=== PATIENT | male | born 1960 | race Caucasian/White ===

== ENCOUNTER → 2018-04-10 | Outpatient (CLI) | payer BC | LOC: FIMAGING 14:48 | PROVIDERS: ATTEND Orthopaedic Surgery | DX: M16.11 Unilateral primary osteoarthritis, right hip (principal) ==

== ENCOUNTER 2018-05-04 06:01 | Inpatient (IN) | payer BC ==
[~2018-05-04 06:01] MED LIST: ROPIVACAINE 0.2% 80 MG, EPINEPHrine 0.2 MG, KETOROLAC TROMETHAMINE 30 MG, morphINE 10 M... IU ONE; TRANEXAMIC ACID 1,000 MG in NS 100 ML IV ONE; VANCOMYCIN 1.25 GM in NS 250 ML IV ONE; VANCOMYCIN PHARMACY TO DOSE MISC ONE
--- NOTE | 2018-05-04 06:13 | PDIAF ---
- Diagnosis Diagnosis: right hip djd Code Status: Full Code - Medication Management Discharge Medications: Medications to Continue on Transfer Amphet Asp and D/Amphet [Adderall 10 MG (*)] 2.5 mg PO DAILY PRN 03/20/18 [Last Taken Unknown] Discharge Medications: Refer to the Discharge Home Medication list for PRN reason. - Orders Services needed: Home Care, Physical Therapy Home Care Face to Face: I certify that this patient was under my care and that I had the required oltm-wp-crws encounter meeting the encounter requirements on the discharge day. My findings support the fact that the patient is homebound as defined in Home Care Face to Face Continued: CMS Chapter 7 Medicare Benefits Manual 30.1.1 , The condition of the patient is such that there exists a normal inability to leave home and consequently, leaving home would require a considerable and taxing effort. Diet Recommendation: no restrictions on diet Diet Texture: Regular Texture Diet Additional Instructions: TOTAL JOINT ARTHROPLASTY DISCHARGE INSTRUCTIONS 1. Your surgeon follows the [facility] protocol for reducing your risk of DVT (blood clots) following surgery. Medication will be ordered to prevent blood clots. A sudden increase in calf pain and/or swelling could indicate a blood clot in your leg. If this occurs, please call your surgeon or his/her early childhood assistant. An ultrasound of the leg may be necessary to diagnose a blood clot. If you have conditions that make you a higher risk for blood clots, your surgeon may use more aggressive ways to prevent them. Notify your surgeon if you think you are a high risk for blood clots. 2. Wear your white surgical stockings (KENYATTA hose) for 2 weeks. This decreases your swelling and may help prevent blood clots. It is ok to remove KENYATTA hose at night time to give your legs a break. 3. Swelling and bruising in the surgical leg is common. If you feel that it is excessive, please notify your surgeon. 4. Elevate your surgical leg with the ankle above the hip several times every day. Please keep the leg straight when you elevate by putting pillows under your foot. Do not put pillows under your knee. This will make being able to fully straighten more difficult. This is uncomfortable, but try to do it as much as possible. 5. For total knee replacements use compressive wrap on your knee for 3-5 days after surgery, then you can discontinue it. 6. Use a walker or crutches for 1-2 weeks. Progress your weight-bearing as tolerated. You may start to use a cane when you feel stable and safe. 7. You will receive physical therapy instructions in the hospital. Continue those exercises at home. There are additional exercises in the total joint booklet you were given before surgery. Outpatient physical therapy will begin 7- 10 days after surgery. Please schedule this in advance. 8. Use ice on your knee at least 3-5 times every day for 30 minutes. This helps reduce pain and swelling. Also use it at night before falling asleep. 9. Leave your surgical dressing in place for 2 weeks. Your dressing is water resistant, but not waterproof. Cover it with Saran Wrap or Qdlqq-w-Fjfe before showering. You may shower as soon as you feel safe entering a shower. If you notice bleeding from your incision 2 or 3 days after surgery, please notify your surgeon. 10. Due to narcotics, decreased activity and altered diet, most patients experience constipation after surgery. Use vnfl-bvo-ztewaee stool softeners while you are on narcotics. 11. You may drive a car when you are comfortable bearing weight, have good muscular control of your leg and are off narcotics. This usually occurs 2-4 weeks after surgery, depending on which leg was operated on. 12. If there are questions not addressed here, please refer the [facility] book given for more information. If you still have questions, please contact your surgeon s office. 13. If you have a life-threatening emergency, please call 911 and go to the emergency room immediately. For non-life threatening emergencies, please call your physicians office for advice before going to the emergency room. - Follow Up Care Current Providers and Referrals: Xu Mendoza MD [Medical Doctor] - Kaitlin Bower MD [Primary Care Provider] -
--- NOTE | 2018-05-04 06:13 | PDHPUP ---
History & Physical Update H&P update statement: This history and physical update is based on an assessment of the patient which was completed after admission or registration (within 24 hours), but prior to the surgery/procedure. H&P update: no change in patient's condition since H&P completed
[2018-05-04] MEDS ORDERED: FAMOTIDINE 20 MG TAB PO ONE (06:17)
[2018-05-04] MEDS ORDERED: ACETAMINOPHEN 325 MG TAB PO ONE (06:17)
[2018-05-04] MEDS ORDERED: LIDOCAINE 1% 2 ML INJ ID PRN (06:18)
[2018-05-04] MEDS ORDERED: LR 1,000 ML IV ONE (06:18)
[2018-05-04] MEDS ORDERED: ceFAZolin 1 GM/5 ML SYR ONE (06:53)
[2018-05-04] MEDS ORDERED: fentaNYL 100 MCG/2 ML INJ ONE (06:54)
[2018-05-04] MEDS ORDERED: PROPOFOL/EMULSION 500 MG/50 ML BOTTLE IV ONE (06:56)
[2018-05-04] MEDS ORDERED: MIDAZOLAM 2 MG/2 ML VIAL IVP ONE (06:56)
[2018-05-04] MEDS ORDERED: MIDAZOLAM 2 MG/2 ML VIAL ONE (07:17)
[2018-05-04] MEDS ORDERED: NALOXONE HCL 0.4 MG/ML INJ IVP PRN (08:01)
[2018-05-04] MEDS ORDERED: PROMETHAZINE HCL 25 MG/ML INJ IVP PRN ×2 (08:01→08:55)
[2018-05-04] MEDS ORDERED: fentaNYL 100 MCG/2 ML INJ IVP PRN (08:01)
[2018-05-04] MEDS ORDERED: METOCLOPRAMIDE 10 MG/2 ML VIAL IVP PRN ×2 (08:01→08:55)
[2018-05-04] MEDS ORDERED: ONDANSETRON 4 MG/2 ML VIAL IVP PRN ×2 (08:01→08:55)
[2018-05-04] MEDS ORDERED: ALBUTEROL 3 ML DEYVIAL IH PRN (08:01)
[2018-05-04] MEDS ORDERED: DIAZEPAM 5 MG/ML 1 ML SYR IVP PRN (08:01)
[2018-05-04] MEDS ORDERED: oxyCODONE IR 5 MG TAB PO PRN ×2 (08:01→08:55)
[2018-05-04] MEDS ORDERED: HYDROmorphONE/DILAUDID 2 MG/ML INJ IVP PRN (08:01)
--- NOTE | 2018-05-04 08:05 | PDANEPAE ---
ANE Past Medical History - Cardiovascular History Hx Hypertension: No Hx Arrhythmias: No Hx Chest Pain: No Hx Coronary Artery / Peripheral Vascular Disease: No Hx CHF / Valvular Disease: No Hx Palpitations: No - Pulmonary History Hx COPD: No Hx Asthma/Reactive Airway Disease: No Hx Recent Upper Respiratory Infection: No Hx Oxygen in Use at Home: No Hx Sleep Apnea: No Sleep Apnea Screening Result - Last Documented: Positive Pulmonary History Comment: GEOVANI triggers - Neurologic History Hx Cerebrovascular Accident: No Hx Seizures: No Hx Dementia: No - Endocrine History Hx Diabetes: No - Renal History Hx Renal Disorders: No - Liver History Hx Hepatic Disorders: No - Neurological & Psychiatric Hx Hx Neurological and Psychiatric Disorders: No - Cancer History Hx Cancer: No - Congenital Disorder History Hx Congenital Disorders: No - GI History Hx Gastrointestinal Disorders: No - Other Health History Other Health History: osteoarthritis, rt hip. wears glasses - Chronic Pain History Chronic Pain: No - Surgical History Prior Surgeries: colonoscopy. right achilles tendon repair, 1999 ANE Review of Systems Review of Systems: - Exercise capacity METS (RN): 4 METS ANE Patient History - Allergies Allergies/Adverse Reactions: Penicillins Allergy (Verified 03/20/18 14:32) "Skin lesions" - Home Medications Home Medications: Amphet Asp and D/Amphet [Adderall 10 MG (*)] 2.5 mg PO DAILY PRN 03/20/18 [Last Taken Unknown] - NPO status NPO Since - Liquids (Date): 05/03/18 NPO Since - Liquids (Time): 19:00 NPO Since - Solids (Date): 05/03/18 NPO Since - Solids (Time): 19:00 - Smoking Hx Smoking Status: Never smoked - Family Anes Hx Family Hx Anesthesia Complications: none ANE Labs/Vital Signs - Vital Signs Blood Pressure: 134/89 Heart Rate: 76 Respiratory Rate: 18 O2 Sat (%): 94 Height: 167.64 cm Weight: 77.564 kg ANE Physical Exam - Airway Neck exam: FROM Mallampati Score: Class 2 Mouth exam: normal dental/mouth exam - Pulmonary Pulmonary: no respiratory distress - Cardiovascular Cardiovascular: regular rate and rhythym - ASA Status ASA Status: II ANE Anesthesia Plan Anesthesia Plan: general endotracheal anesthesia (GA back-up), spinal
[2018-05-04] MEDS ORDERED: SUCCINYLCHOLINE CHLORIDE 200 MG/10 ML SYR IVP ONE (08:21)
[2018-05-04] MEDS ORDERED: PHENYLEPHRINE HCL 100 MCG/ML SYR ONE (08:21)
[2018-05-04] MEDS ORDERED: DEXAMETHASONE 4 MG/ML VIAL ONE (08:21)
[2018-05-04] MEDS ORDERED: ONDANSETRON 4 MG/2 ML VIAL ONE (08:21)
[2018-05-04] MEDS ORDERED: ROCURONIUM 50 MG/5 ML VIAL ONE (08:21)
[2018-05-04] MEDS ORDERED: SUGAMMADEX SODIUM 200 MG/2 ML VIAL IVP ONE (08:51)
[2018-05-04] MEDS ORDERED: ONDANSETRON DISINTEGRATING 4 MG TAB PO PRN (08:55)
[2018-05-04] MEDS ORDERED: LACTULOSE 20 GM/30 ML UDCUP PO PRN (08:55)
[2018-05-04] MEDS ORDERED: diphenhydrAMINE 25 MG CAP PO PRN (08:55)
[2018-05-04] MEDS ORDERED: DIPHENOXYLATE/ATROPINE LOMOTIL 1 TAB PO PRN (08:55)
[2018-05-04] MEDS ORDERED: BISACODYL 10 MG SUPP PR PRN (08:55)
[2018-05-04] MEDS ORDERED: POLYETHYLENE GLYCOL 3350 17 GM PKT PO PRN (08:55)
[2018-05-04] MEDS ORDERED: CYCLOBENZAPRINE 10 MG TAB PO PRN (08:55)
[2018-05-04] MEDS ORDERED: PROMETHAZINE HCL 25 MG SUPPR PR PRN (08:55)
[2018-05-04] MEDS ORDERED: TEMAZEPAM 15 MG CAP PO PRN (08:55)
[2018-05-04] MEDS ORDERED: MAGNESIUM HYDROXIDE 30 ML UDCUP PO PRN (08:55)
--- NOTE | 2018-05-04 08:55 | POSTOPPROG ---
Post Op Note Date of Operation: 05/04/18 Surgeon: Xu Mendoza Gasket Winder: janel Anesthesiologist: norma Anesthesia: GET(General Endotracheal), Spinal Pre-op Diagnosis: right hip djd Post-op Diagnosis: same Indication: same Procedure: right jaime Inf/Abcess present in the surg proc area at time of surgery?: No Depth: Deep Incisional (Fascial) EBL: 100-500 Drains: Hemovac
[2018-05-04] MEDS ORDERED: ADDERALL 10 MG TAB PO PRN (08:56)
--- NOTE | 2018-05-04 10:06 | POSTANESTH ---
Post Anesthetic Evaluation Cardiovascular Status: Normal, Stable Respiratory Status: Normal, Stable Level of Consciousness/Mental Status: Can Participate in Eval Pain Control: Adequate, Prn Tx Ordered Complications Possibly Related to Anesthesia: None Noted
--- NOTE | 2018-05-04 10:14 | PDMN ---
Medical Necessity Medical necessity: P meets inpt criteria per MD order and [facility] S-560, Hip Arthroplasty, CPT 22938, medicare inpt only list, approved for inpt, auth # [id number]. 58 y/o admitted for R ARTI and post-op care, anticipate>2MN.
[2018-05-04] MEDS: SENNOSIDES/DOCUSATE SODIUM TAB PO SCH ×2 (10:19→20:29)
[2018-05-04] MEDS: ACETAMINOPHEN 325 MG TAB PO SCH ×3 (12:14→23:57)
[2018-05-04] MEDS: TRANEXAMIC ACID 650 MG TAB PO SCH ×2 (14:43→21:45)
[2018-05-04] MEDS: LR 1,000 ML IV SCH ×2 (16:48→23:57)
[2018-05-04] MEDS ORDERED: VANCOMYCIN HCL/NORMAL SALINE 250 ML IV ONE (18:30)
[2018-05-04] MEDS: ASPIRIN 325 MG TAB PO SCH (20:28)
[2018-05-04] MEDS: FAMOTIDINE 20 MG TAB PO SCH (20:28)
[2018-05-05] MEDS: ACETAMINOPHEN 325 MG TAB PO SCH ×2 (05:29→12:00)
[2018-05-05] MEDS: TRANEXAMIC ACID 650 MG TAB PO SCH (05:31)
[2018-05-05 08:11] VITALS: BP 96/63
--- NOTE | 2018-05-05 08:49 | SOAPPROG ---
SOAP Progress Note Assessment/Plan: Assessment: s/.p jaime Plan:stable passed out from spinal hypotension yest, now resolved d/c home after cleared by pt dvt precautions reviewed 05/05/18 08:47 05/05/18 08:48 Subjective: no complaints currently no cp or sbo Objective: Vital Signs Temp Pulse Resp BP Pulse Ox 36.7 C 73 14 96/63 L 97 05/05/18 08:00 05/05/18 08:00 05/05/18 08:00 05/05/18 08:00 05/05/18 08:00 Laboratory Results 05/05/18 04:20 05/04/18 11:26 05/04/18 05/05/18 05/06/18 05:59 05:59 05:59 Intake Total 3900 Output Total 1880 300 Balance 2020 -300 dressing intact intact pdf,ehl toes warm and pink neg homans rosita xrays anatomic alignment, no fx or lucency ICD10 Worksheet Patient Problems: Problems Problem Status Onset Hip arthritis Acute - ICD10 Problem Qualifiers (1) Hip arthritis
[2018-05-05] MEDS: ASPIRIN 325 MG TAB PO SCH (09:47)
[2018-05-05] MEDS: SENNOSIDES/DOCUSATE SODIUM TAB PO SCH (09:47)
[2018-05-05] MEDS: FAMOTIDINE 20 MG TAB PO SCH (09:47)
--- NOTE | 2018-05-05 15:04 | ASMTLACE ---
PITO Length of stay for Answers: 2 days current admission Acuity / Level of Answers: Yes Care: Did the patient have an inpatient admission? # of Emergency department Answers: 0 visits in the last 6 months Score: 5 Date Signed: 05/05/2018 03:03 PM Electronically Signed By:MALA Tam
--- NOTE | 2018-05-05 15:23 | ASDISCHSUM ---
Discharge Information Plan Status:Home with Home Health Medically Cleared to Leave: Discharge Date:05/05/2018 12:20 PM CM D/C Disposition:Home Health Service ADT D/C Disposition:Home Health Service Projected Discharge Date:05/05/2018 11:00 AM Transportation at D/C: Discharge Delay Reason: Follow-Up Date:05/05/2018 11:00 AM Discharge Slot: Final Diagnosis: Placement Information Referral Type:*Home Health Care Services Referral ID:[id number] Provider Name:[facility] [address] Address 2: City:[place] Selection Factors: State:[place] Patient Contact Information Contact Name:MIKE Relationship: Address:[address] City:[place] Alternate Phone: State/Zip Code:[place] [address] Email: Financial Information Financial Class:BCOP Primary Plan Desc:[employer] [facility] Primary Plan Number:[id number] Secondary Plan Desc: Secondary Plan Number: Assessment Information LACE LACE Length of stay for Answers: 2 days current admission Acuity / Level of Answers: Yes Care: Did the patient have an inpatient admission? # of Emergency department Answers: 0 visits in the last 6 months Score: 5 Date Signed: 05/05/2018 03:03 PM Electronically Signed By:MALA Tam [facility] CM Progress Note CM Note CM Note Notes: Pt medically stable for d/c with [facility]. Orders to be obtained via [employer]. Pt address/phone verified. Date Signed: 05/05/2018 03:22 PM Electronically Signed By:MALA Tam Intervention Information
--- NOTE | 2018-05-10 15:06 | GDS ---
ADMISSION DIAGNOSIS: Right hip degenerative joint disease. DISCHARGE DIAGNOSIS: Right hip degenerative joint disease. PROCEDURE: Right total hip arthroplasty. HISTORY OF PRESENT ILLNESS: This is a 58-year-old gentleman with end-stage arthritis to his right hi p. He presents for elective right total hip replacement. HOSPITAL COURSE: He was admitted overnight after uncomplicated total hip arthroplasty. He tolerated the procedure well. Overnight, he had no complications. DISCHARGE ACTIVITY: Weightbearing as tolerated. Anterior hip precautions. Keep the dressing clean, dry, and intact. Seek attention for increasing redness, swelling, drainage. FOLLOWUP: At 2 weeks. DISCHARGE MEDICATIONS: Oxycodone 5 mg 1-2 every 6 hours p.r.n. pain, aspirin 325 mg p.o. daily for 6 weeks. /[id number]/MODL
--- NOTE | 2018-05-10 15:18 | GOP ---
DATE OF OPERATION: 05/04/2018 SURGEON: Xu Mendoza MD MEDICAL OFFICE TECHNICIAN: Jack Ramos, SLATE ROOFER, MUSIC BOX MECHANIC, regional vice president surgical sales who was medical necessity for the entirety of the case. PREOPERATIVE DIAGNOSIS: Right hip degenerative joint disease. POSTOPERATIVE DIAGNOSIS: Right hip degenerative joint disease. PROCEDURE PERFORMED: Right total hip arthroplasty. FINDINGS: SPECIMENS: To Pathology, the femoral head. INDICATIONS: This is a 58-year-old gentleman who presents today for elective right total hip arthrop lasty. He has right hip arthritis. He has failed all attempts at conservative management. He under stands the risks, benefits, alternatives, and wishes to proceed. Written consent was signed and plac ed in patient's chart. DESCRIPTION OF PROCEDURE: The patient was identified in the preanesthesia area. The right hip clear ly demarcated as the operative site with an indelible marker. He was given 2 g of Ancef intravenousl y en route to the operative suite. In the OR spinal anesthetic was placed followed by general endotr acheal anesthesia. Attention was then turned to the pelvis and both lower extremities were sterilely prepped and draped in usual fashion. Appropriate time-out procedure was carried out. Attention was first turned to the left hemipelvis, 2 cm incision was made over the iliac crest. Three pins were t hen placed and the femoral reference array affixed. Attention was then turned to the right hip. An anterior approach was made. The fascia of the tensor fascia sergio was opened in the origin of its fib ers. The tensor was retracted laterally. The underlying vascular structures were identified and lig ated, cauterized and transected. The rectus was elevated off the capsule and retractors were placed in an extracapsular position. A T capsulotomy was then made. Retractors were then placed into an int racapsular position. An acetabular checkpoint was placed. A bony wedge was withdrawn from the femor al neck and the femoral head removed. The soft tissue was sharply excised. The bony landmarks enter ed into the computer in a single-stage reaming, a size 50 mm reamer was placed at an opening angle of 40 degrees and anteversion of 20 degrees. A Trident 2 acetabular shell was then impacted, confirmed to be fully seated. A 0-degree X3 liner was then placed and confirmed to be fully seated. Attentio n was then turned to the femur. The femur was delivered through the use of extension of the table, s oft tissue releases, and retractor placement. The canal was opened, serial broaching carried out to a size 4 stem. Trialing was undertaken and ultimately a 32 mm +4 mm neck length stem was selected as the final implant. This allowed equal leg lengths, stability with full extension, external rotation to 90 degrees. The trial stem was withdrawn, a final stem was impacted, confirmed to be fully seate d and the trunnion was cleansed and a 32+ 4 mm Biolox head was placed across the trunnion. The hip w as irrigated and hip reduced. Leg lengths were equal. Stability profile was as above. The wound wa s copiously irrigated with pulsatile lavage solution. A 10-Filipino drain was then placed. The subcut aneous tissue injected with ropivacaine, morphine, Toradol and epinephrine. The tensor fascia sergio c losed using 0 Vicryl, subcutaneous tissue using 2-0 Monocryl and a zip line closure followed by steri le dressing. The patient was awakened, extubated, taken to recovery room in good, stable condition. TOTAL TOURNIQUET TIME: None. COMPLICATIONS: None. IMPLANTS: [place] Trident II acetabular shell, size 50, Trident X3 0-degree polyethylene insert, 32 mm, Accolate II 127 degree neck angle hip stem size 4 and Biolox ceramic head, 32 mm, +4 mm neck mino th. DISPOSITION: To the recovery room, then the floor. He is weightbearing, range of motion as tolerate d. Anterior hip precautions. /[id number]/MODL
== END 2018-05-05 12:20 | disposition home health service (06) | DRG 470 ==
LOC: F3N 06:01
PROVIDERS: ADMIT Orthopaedic Surgery; ATTEND Orthopaedic Surgery
PROC: 8E0Y0CZ Robotic Assisted Procedure of Lower Extremity, Open Approach (ICD-10-PCS; principal; 2018-05-04 07:15)
PROC: 0SR904Z Replacement of Right Hip Joint with Ceramic on Polyethylene Synthetic Substitute, Open Approach (ICD-10-PCS; principal; 2018-05-04 07:15)
DX: M16.11 Unilateral primary osteoarthritis, right hip (principal); E78.00 Pure hypercholesterolemia, unspecified; F90.9 Attention-deficit hyperactivity disorder, unspecified type
CPT/HCPCS: 97116-GP; 97161-GP; 97165-GO; 97530-GP; G8979-GP-CI; G8980-GP-CI; J0171; J0330; J1100; J1885; J2250; J2270; J2370; J2405; J2704; J2795; J3010; J3370